=== PATIENT | male | born 1985 | race Caucasian/White ===

== ENCOUNTER 2019-02-17 17:17 | Emergency (ER) | payer MEDICAID ==
[~2019-02-17] VITALS: Ht 180.3 cm; Wt 67.0 kg
[~2019-02-17 17:17] MED LIST: NO HOME MEDS
[2019-02-17 17:56] VITALS: BP 151/98
== END 2019-02-17 20:02 | disposition home or self-care (01) ==
LOC: ER 17:18
DX: S62.396A Other fracture of fifth metacarpal bone, right hand, initial encounter for closed fracture (principal); F12.90 Cannabis use, unspecified, uncomplicated; F10.99 Alcohol use, unspecified with unspecified alcohol-induced disorder; Z60.2 Problems related to living alone; Z56.0 Unemployment, unspecified; V00.311A Fall from snowboard, initial encounter; Y93.29 Activity, other involving ice and snow; Y92.89 Other specified places as the place of occurrence of the external cause; Y99.8 Other external cause status; Y90.9 Presence of alcohol in blood, level not specified
CPT/HCPCS: 29125; 73130; 99284

== ENCOUNTER 2021-02-19 11:46 | Emergency (ER) | payer MEDICAID ==
[~2021-02-19] VITALS: Ht 180.3 cm; Wt 70.5 kg
[2021-02-19 12:19] VITALS: BP 117/75
[2021-02-19 13:07] LABS: BASOPHILS % (AUTO) 0.2 % (0-1); EOSINOPHILS % (AUTO) 0 % (0-6); HEMATOCRIT 41.6 % (42.0-52.0); LYMPHOCYTES # (AUTO) 0.9 X10'3 (1.1-4.8); LYMPHOCYTES % (AUTO) 6.7 % (21-51); MEAN CORPUSCULAR HEMOGLOBIN 30.9 PG (27.0-31.0); MEAN CORPUSCULAR HGB CONC 33.7 g/dL (33.0-36.5); MEAN CORPUSCULAR VOLUME 91.6 FL (78-98); MEAN PLATELET VOLUME 7.5 FL (7.4-10.4); MONOCYTES # (AUTO) 1.3 X10'3 (0-0.9); NEUTROPHILS # (AUTO) 11.6 X10'3 (1.8-7.7); NEUTROPHILS % (AUTO) 84.1 % (42-75); PLATELET COUNT 278 X10'3 (140-440); RED BLOOD COUNT 4.54 X10'6 (4.70-6.10); RED CELL DISTRIBUTION WIDTH 14.5 % (11.5-14.5); WHITE BLOOD COUNT 13.9 X10'3 (4.5-11.0)
[2021-02-19 13:24] LABS: ALANINE AMINOTRANSFERASE 53 U/L (12-78); ALBUMIN 4.6 G/DL (3.4-5.0); ALBUMIN/GLOBULIN RATIO 1.5 (1.1-1.5); ALKALINE PHOSPHATASE 95 IU/L (46-116); ANION GAP 15 (8-16); ASPARTATE AMINO TRANSFERASE 33 U/L (10-37); BILIRUBIN,TOTAL 0.4 MG/DL (0.1-1.0); BLOOD UREA NITROGEN 10 MG/DL (7-18); BUN/CREATININE RATIO 13.7 (5.4-32.0); CALCIUM 8.8 MG/DL (8.5-10.1); CHLORIDE 103 MMOL/L (99-107); CREATININE 0.73 MG/DL (0.60-1.10); GLUCOSE 101 MG/DL (70-104); PHENYTOIN (DILANTIN) 0.9 UG/ML (10.0-20.0); POTASSIUM 3.9 MMOL/L (3.5-5.1); SODIUM 142 MMOL/L (135-145); TOTAL CARBON DIOXIDE 24.3 MMOL/L (24-32); TOTAL PROTEIN 7.7 G/DL (6.4-8.2); eGFR > 90 ML/MIN
[2021-02-19] MEDS ORDERED: ONDA-103 PO (14:55)
[2021-02-19] MEDS ORDERED: PHEN100C4 PO (14:55)
[2021-02-19] MEDS ORDERED: ondansetron 4mg rapidly disintigrating tab PO ONE (15:00)
[2021-02-19] MEDS ORDERED: phenytoin sod ER 100mg capsule PO ONE ×2 (15:10)
== END 2021-02-19 16:02 | disposition home or self-care (01) ==
LOC: ER 11:46
DX: G40.909 Epilepsy, unspecified, not intractable, without status epilepticus (principal); Z20.822 Contact with and (suspected) exposure to COVID-19; R11.10 Vomiting, unspecified; F12.90 Cannabis use, unspecified, uncomplicated; Z76.0 Encounter for issue of repeat prescription; Z72.89 Other problems related to lifestyle; Z56.0 Unemployment, unspecified; Z79.899 Other long term (current) drug therapy
CPT/HCPCS: 80053; 80185; 85025; 87635; 99284; C9803